=== PATIENT | male | born 1950 | race Caucasian/White ===

== ENCOUNTER 2023-02-10 08:40 | Outpatient (OUT) | payer MEDICARE, SELFPAY | END 2023-02-10 08:41 | disposition home or self-care (01) | LOC: LAB 08:44 | DX: R97.20 Elevated prostate specific antigen [PSA] (principal) | CPT/HCPCS: 36415; 84153 ==

== ENCOUNTER 2024-02-20 08:42 | Outpatient (OUT) | payer MEDICARE, SELFPAY ==
[2024-02-20 11:26] LABS: Prostate Specific Antigen Dx 2.43 ng/mL (<=4.00)
== END 2024-02-20 08:43 | disposition home or self-care (01) ==
LOC: LAB 08:44
PROVIDERS: Visit Provider Physician Assistant
DX: R97.20 Elevated prostate specific antigen [PSA] (principal); N40.1 Benign prostatic hyperplasia with lower urinary tract symptoms
CPT/HCPCS: 36415; 84153

== ENCOUNTER 2025-02-21 07:37 | Outpatient (OUT) | payer MEDICARE, SELFPAY ==
--- OUTSIDE RECORDS SUMMARY | 2025-01-04 09:20 | XMS_ITS ---
Author Organization OHIP Care Team Providers Care Director Of Rotc Name Role Phone AGUSTÍN VILA Attending Unavaila ble BRUCE, SARY Referring Unavailable BRUCE, SARY Primary Care Unavailable AGUSTÍN VILA S Referring Unavaila ble BRUCE, SARY Primary Care Unavailable MAREK ROUSSEAU Referring Unavailable BRUCE, SARY Primary Care Unavailable AGUSTÍN VILA Attending Unavaila ble BRUCE, SARY Primary Care Unavailable BRUCE, SARY Referring Unavailable AGUSTÍN VILA Referring Unavaila ble BRUCE, SARY Primary Care Unavailable AGUSTÍN VILA S Admitting Unavaila ble ASSENMACHER, AGUSTÍN S Attending Unavaila ble ASSENMACHER, AGUSTÍN S Referring Unavaila ble BRUCE, SARY Primary Care Unavailable BRUCE, SARY Primary Care Unavailable ROCÍO HAYES Attending Unavailable BRUCE, SARY Primary Care Unavailable ABIGAIL, ROCÍO Attending Unavailable ASSENMACHER, AGUSTÍN S Attending Unavaila ble BRUCE, SARY Referring Unavailable BRUCE, SARY Primary Care Unavailable ASSENMACHER, AGUSTÍN S Attending Unavaila ble BRUCE, SARY Referring Unavailable BRUCE, SARY Primary Care Unavailable ASSENMACHER, AGUSTÍN S Attending Unavaila ble BRUCE, SARY Referring Unavailable BRUCE, SARY Primary Care Unavailable Trena Coffman R Attending Unavailable Trena Coffman R Admitting Unavailable Bruce, Sary A Primary Care Unavailable Bruce DRY WALL PLASTERER-C, Sary A Primary Care Unavailable Assenmacher, Agustín S Admitting Unavaila ble Assenmacher, Agustín S Attending Unavaila ble Bruce DRY WALL PLASTERER-C, Sary A Primary Care Unavailable Bruce DRY WALL PLASTERER-C, Sary A Attending Unavailable Bruce DRY WALL PLASTERER-C, Sary A Primary Care Unavailable Bruce DRY WALL PLASTERER-C, Sary A Attending Unavailable Bruce DRY WALL PLASTERER-C, Sary A Primary Care Unavailable Bruce DRY WALL PLASTERER-C, Sary A Admitting Unavailable Bruce DRY WALL PLASTERER-C, Sary A Attending Unavailable HUMPHREY RAMEY Attending Unavailable Purpose PROBLEMS DATE TYPE CONDITION / CODE ATTENDING STATUS [facility] 08/24/2024 Unknown Post-op / FREETEXT(AOF) AGUSTÍN LAU [facility] 07/05/2024 Unknown Incomplete rotat or cuff tear or rupture of left shoulder, not specified as traumatic / M75.112(ICD-10) AGUSTÍN VILA Active [facility] 08/09/2024 Unknown Nontraumatic inc omplete tear of left rotator cuff [M75.112] / UNK(Unknown) AGUSTÍN VILA [facility] 07/02/2024 Unknown Follow-up / FREETEXT(AOF) AGUSTÍN VILA [facility] 06/04/2024 Unknown Pain in left abdifatah ulder / M25.512(ICD-10) AGUSTÍN VILA [facility] 06/04/2024 Unknown Other chronic pa in / G89.29(ICD-10) AGUSTÍN VILA Active [facility] 06/04/2024 Unknown Pain / FREETEXT(AOF) AGUSTÍN LA [facility] 02/23/2024 Unknown Other specified soft tissue disorders / M79.89(ICD-10) Trena Coffman [facility] 02/23/2024 Unknown Other acute postprocedural pain / G89.18(ICD-10) Trena Coffman [facility] 02/23/2024 Unknown Ganglion, right wrist / M67.431(ICD-10) Trena Coffman [facility] 02/23/2024 Unknown Ganglion, right hand / M67.441(ICD-10) Trena Coffman [facility] 02/23/2024 Unknown Pain in unspecif ied limb / M79.609(ICD-10) Trena Coffman [facility] PROCEDURES No Procedure Records Found VITAL SIGNS No Vital Signs Records Found RESULTS OUTSIDE RECORDS Observed: 01/04/2025 8:49 AM Status: F Source: [facility] [id number]#1.00OTGTIFF CODING SUMMARY Observed: 10/06/2024 9:16 AM Status: F Source: [facility] [employer] 64 HvynhkdjNFx0zCl+PGhlYWQ+FK7OFUKnU50eaENlbO4lG5GLTFqILuiiSUXDJPfOYfHjolUmXG0zsHGr ZXJu [file] [id number]+ CMP STANDARD Collected: 5 7:24 AM Status: F Source: [facility] TYPE CODE TESTS RESULT OUT OF RANGE REFERENCE UNITS LAB 8707592(LOINC) A/G Ratio 2.6 1.4-2.6 LAB 7143829(LOINC) Anion Gap 10.1 5.0-19.0 mmol/L LAB 1403237(LOINC) BUN/Creat Ratio 17.2 High 4.6-16.2 LAB 8896503(LOINC) Globulin 1.9 1.5-4.3 gm/dL LAB 4669228(LOINC) Osmolality 274 Unknown mOsm/L LAB 6476181(LOINC) Albumin Level 5.1 High 3.5-5.0 gm/ dL LAB 6772180([facility]) Alk Phos 48 32-91 IU/L LAB 0262708([facility]) ALT/SGPT 23.0 17.0-63.0 IU/L LAB 9133043([facility]) AST/SGOT 22 15-41 IU/L LAB 9519818([facility]) Bili Total 1.5 High 0.3-1.2 mg/dL LAB 4484437([facility]) BUN 16 8-26 mg/dL LAB 3794193([facility]) Calcium Level 9.3 8.9-10.3 mg /dL LAB 9732076([facility]) CO2 24 21-32 mmol/L LAB 8933874([facility]) Chloride Level 106 101-111 mm ol/L LAB 4347553([facility]) Creatinine Level 0.93 0.90-1.30 mg/dL LAB 1334646([facility]) Glucose Level 105.0 74.0-118.0 mg/dL LAB 9989910([facility]) Potassium Level 4.1 3.6-5.1 mmol/L LAB 0308367([facility]) Protein Total 7.0 6.5-8.1 gm/ dL LAB 4160945([facility]) Sodium Level 136.0 136.0-144.0 mmol/L LAB 7014019([facility]) eGFR AA >60 Unknown mL/min/1 .73m2 LAB 9765881([facility]) eGFR Non AA >60 Unknown mL/mi n/1 .73m2 Performed By: #### [id number] 5, [id number] #### [facility] (DEFAULT) [address] [place] [address] LIPID PANEL STANDARD Collected: 10/02/2024 7:24 AM S tatus: F Source: [facility] TYPE CODE TESTS RESULT OUT OF RANGE REFERENCE UNITS LAB 0182108([facility]) HDL 51 40-71 mg/dL LAB 8525265([facility]) LDL 140 High 1-100 mg/dL LAB 7145340([facility]) Trig 59.0 0.0-150.0 mg/dL LAB 8272153([facility]) Cholesterol 202.0 High 66.0-200.0 mg /dL LAB 73774422([facility]) VLDL. 12 5-40 mg/dL LAB 3223889([facility]) Chol/HDL Ratio 3.9 0.0-4.5 Performed By: #### [id number] 5, [id number] #### [facility] ([facility]) [address] [place] [address] CODING SUMMARY Observed: 09/06/2024 7:23 AM Status: F Source: [facility] [employer] 64 UguciqpnGTq8cBt+PGhlYWQ+SD4IZCGuN55ejAWmsY6cB6MBHOuBRtjcJKNBZWpKCoUznxGwIA7ywJYf ZXJu [file] [id number]+HJUjQu32Z7Jjpl09Y6e2sNh+ CODING SUMMARY Observed: 09/06/2024 7:20 AM Status: F Source: [facility] [employer] 64 WocqrnbqCIc6xMz+PGhlYWQ+WP2TFBUvD99mrLQjhT2cI1YOHOhUEktlTUNFUSpFFdDiarQeLN2xxNLm ZXJu [file] [id number]+GLWyYx74H7Mlij37T5y5lBc+ PROVIDER ORDERS Observed: 09/02/2024 8:19 AM Status: P [address]: [id number]#1.00OTGTIFF MEDICATION MANAGEMENT Observed: 09/02/19 8:19 AM Status: F Source: [id number]#1.00OTGTIFF PHYSICAL THERAPY NOTE Observed: 09/02/19 8:19 AM Status: F Source: [id number]#1.00OTGTIFF OUTSIDE RECORDS Observed: 08/29/2024 10:19 AM Status: F Source: [facility] [id number]#1.00OTGTIFF PROVIDER ORDERS Observed: 08/26/2024 11:49 AM Status: F Source: [facility] [id number]#1.00OTGTIFF OUTSIDE RECORDS Observed: 08/09/2024 2:08 PM Status: F Source: [facility] [id number]#1.00OTGTIFF OUTSIDE RECORDS Observed: 07/02/2024 10:05 AM Status: F Source: [facility] [id number]#1.00OTGTIFF MR SHOULDER LT WO CONT Observed: 7:17 AM Status: COMPLETED Source: [facility] MR SHOULDER LT WO CONT MR LEFT SHOULDER CLINICAL INFORMATION: Shoulder pain. COMPARISON: Radiographs 06/04/2024 PROCEDURE: Multiplanar multisequence images of the shoulder performed. No intravenous contrast. FINDINGS: ROTATOR CUFF AND ASSOCIATED STRUCTURES Long head biceps tendon: Proximal tendinosis, split tearing without complete tear. Medially perched on the bicipital groove. There is moderate volume complex tendon sheath fluid. Rotator cuff and muscles: Mild supraspinatus, infraspinatus tendinosis. Articular sided clefting and irregularity along the supraspinatus tendon distally near the footprint begins at the anterior leading edge, appears high-grade roughly centimeter percent in thickness, no full-thickness tear. Tendon retraction roughly 9 mm. Tear width roughly 7 mm. Additional subtle intrasubstance injury infraspinatus tendon without distinct or measurable full-thickness tear. Mild to moderate subscapularis tendinosis, slight intrasubstance and undersurface fraying/injury without measurable discrete tear. There is diffuse mild fat infiltration the musculature without significant loss of muscle bulk. Bursa: Small to moderate volume subacromial subdeltoid bursal fluid. OSSEOUS STRUCTURES Acromioclavicular joint: Type 1 No os acromiale. Advanced AC joint arthritis. Bones: No Hill-Sachs, reverse Hill-Sachs, or bony Bankart lesions. No fracture. No osteonecrosis. No suspicious osseous lesion. GLENOHUMERAL JOINT Joint: Normal alignment. Small to moderate volume complex joint fluid. Cartilage: Regions of high-grade near full-thickness and full-thickness chondral loss. Labrum: Superior labral degeneration, no paralabral cyst. Other support structures: No capsular or ligamentous abnormality. OTHER No enlarged lymph nodes. IMPRESSION: 1. Supraspinatus, infraspinatus, subscapularis tendinosis with partial injury as described, no full-thickness tear. Most high-grade tear distal supraspinatus bursal sided. 2. Other chronic findings as described including long head biceps tendinosis, tenosynovitis and split tearing. Subacromial subdeltoid bursitis. Degenerative changes. Finalized by Milan Ledbetter MD on 06/28/2024 3:02 PM OUTSIDE RECORDS Observed: 05/18/2024 8:14 AM Status: F Source: [facility] [id number]#1.00OTGTIFF OUTSIDE RECORDS Observed: 04/06/2024 2:52 PM Status: F Source: [facility] [id number]#1.00OTGTIFF OUTSIDE RECORDS Observed: 03/12/2024 8:55 AM Status: F Source: [facility] [id number]#1.00OTGTIFF OUTSIDE RECORDS Observed: 03/09/2024 2:22 PM Status: F Source: [facility] [id number]#1.00OTGTIFF UROLOGY OFFICE/CLINIC NOTE Observed: 11:31 AM Status: F Source: [facility] Urology Office/Clinic Note Chief Complaint 1 year with PSA HPI Staff 74 year old male patient presents today for a 1 year follow up with PSA. Previous Dx: elevated PSA, BPH with urinary obstruction. Current PSA 2.43 done 02/20/24. Previous PSA 3.00 done 02/10/23. Taking Flomax 0.4 mg bid. S/p TURP 02/25/13, cysto/UD 08/31/13, transurethral incision of bladder neck 09/02/13, cysto 05/23/15. Needs flomax refilled. Dysuria: denies Incomplete bladder emptying: denies Hematuria: denies visible blood Frequency: denies, goes once every 3-4 hours Urgency: denies Nocturia: once a night Stream: denies hesitancy, steady stream Leaking: denies Post void dripping: denies Wearing pads/ Depends: denies Urge incontinence: denies Stress incontinence: denies Incontinence without Sensory Awareness: denies Abdominal pain: denies Flank pain: _denies Sexual complaints: _ Review of Systems PHQ Score Initial Depression Screen Score: 0 SCORE no fever, chills, malaise, myalgia. no rash/lesions. no chest pain, palpitations, or SOB. no abdominal pain, nausea, vomiting. no unilateral calf swelling, redness, pain Physical Exam Vitals & Measurements HR: 82(Peripheral) RR: 16 BP: 122/80 HT: 68 in HT: 172 cm WT: 80 kg WT: 176 lb BMI: 27.04 General: nontoxic, NAD Mouth: moist mucosa Lungs: normal respiratory effort Cardio: regular rate, good distal perfusion Abdomen: nondistended, no suprapubic distention or tenderness, no CVA tenderness Neurologic: Grossly normal Skin: No rashes or suspicious lesions Assessment/Plan Spermatocelectomy - 01/11/10 Urodynamics - 02/07/13 1. BPH with urinary obstruction (N40.1: Benign prostatic hyperplasia with lower urinary tract symptoms) sp TURP February 2013 TUIBNC Aug 2013 Pt is taking tamsulosin BID and is highly satisfiedwith overall symptom control. Pt is experiencing noside effects. IPSS 1 QOL 0 UA completed in office today shows no microhematuria or signs of infection. We discussed current dose and optional changes: decreasing tamsulosin to QD adding an additional agent such as finasteride/dutasteride I discussed with the patient the different surgical treatment options for bladder outlet obstruction including TURP, Rezum, and Urolift. The patient prefers to continue the BPH medications at this time. Pt prefers to continue current regimen with no changes at this time. Refills provided to [employer]. Ordered: Body Mass Index (BMI) documented 3008F Current tobacco non-user 1036F Depression Screening Negative 3352F Influenza immunization status assessed 1030F Medication list documented in medical record 1159F Most recent diastolic blood pressure 80-89 mm Hg 3079F Patient screen for fall risk: no falls in last year or 1 fall with no injury in last year 1101F Review of all meds by a prescribing practitioner or clinical pharmacist documented in EHR 1160F Systolic BP <130 mm Hg (Most Recent) 3074F Urnls Dip Stick Auto w/o Microscopy POC 91519 2. Prostate cancer screening, (Z12.5: Encounter for screening for malignant neoplasm of prostate)Prostate cancer screening PSA 11/13/2017 - 1.71 11/16/2018 - 2.09 01/31/2020 - 2.99 08/16/2020 - 2.41 01/18/2021 - 2.26 02/10/2023 - 3.00 02/20/24 - 2.43 PSA is down about half a point from last year. But overall pretty stable over the past 4-5 yrs running in the 2-3 range. Continue annual monitoring. Order provided. Ordered: PSA Screen, Total Orders: tamsulosin, 0.4 mg = 1 cap(s), Oral, BID, DO NOT FILL UNTIL PT REQUESTS, # 180 cap(s), Refills(s) 3, Pharmacy: [facility], 172, cm, 03/01/24 11:17:00 EDT, Height/Length Dosing, 80, kg, 03/01/24 11:17:00 EDT, Weight Dosing Follow-up With When Contact Information HUMPHREY RAMEY PA-C, URL Within 1 year Additional Instructions: Patient Education Benign Prostatic Hyperplasia Problem List/Past Medical History Ongoing Arthritis BPH with urinary obstruction Elevated PSA Hepatitis Inflammatory disease of liver Osteoarthritis of left knee joint Osteoarthritis of right knee joint Prostate cancer screening Prostatitis Spermatocele Urethral stricture Historical No qualifying data Procedure/Surgical History Wrist (02/23/2024), Cystoscopy (05/23/2015), Transurethral incision of bladder neck (09/02/2013), Cystoscopy (08/31/2013), TURP - Transurethral resection of prostate (02/25/2013), Cystoscopy (02/16/2013), Urodynamics (02/07/2013), Spermatocelectomy (01/11/2010), Spermatocelectomy (09/07/2009), Colonoscopy, History of hernia repair, Procedure on knee, Ts - Tonsillectomy. Medications apple cider vinegar aspirin 81 mg oral tablet, Oral, Daily tamsulosin 0.4 mg Cap, 0.4 mg= 1 cap(s), Oral, BID, 3 refills Vitamin B-12 Vitamin D3 Allergies ibuprofen (Unknown) Social History Alcohol - Denies Alcohol Use, 02/10/2020 Tobacco - Denies Tobacco Use, 02/10/2020 Never (less than 100 in lifetime) Tobacco Use:. Never Smokeless Tobacco Use:., 03/01/2024 Family History Alzheimer's disease: Mother. Cancer: Father. Diabetes mellitus type 1: Father. Immunizations Vaccine Date Status Comments influenza virus vaccine, inactivated 06/02/2023 Recorded influenza virus vaccine, inactivated 07/23/2022 Recorded SARS-CoV-2 (COVID-19) mRNAMUL.ORD![id number] 06/14/2022 Recorded SARS-CoV-2 (COVID-19) mRNA-1273 vaccine 11/24/2021 Recorded SARS-CoV-2 mRNA (tozinameran 5y-11y) vac 09/2021 Recorded SARS-CoV-2 (COVID-19) mRNA-1273 vaccine 06/16/2021 Recorded influenza virus vaccine, inactivated 06/13/2021 Recorded SARS-CoV-2 mRNA (tozinameran 5y-11y) vac 05/2021 Recorded SARS-CoV-2 mRNA (tozinameran 5y-11y) vac 11/2020 Recorded SARS-CoV-2 (COVID-19) mRNA-1273 vaccine 11/09/2020 Recorded 2023-02-13: 65 SARS-CoV-2 mRNA (tozinameran 5y-11y) vac 10/2020 Recorded SARS-CoV-2 (COVID-19) mRNA-1273 vaccine 10/12/2020 Recorded influenza virus vaccine, inactivated 05/26/2020 Recorded pneumococcal 13-valent vaccine 07/26/2019 Recorded influenza virus vaccine, inactivated 06/01/2019 Recorded influenza virus vaccine, inactivated 06/15/2018 Recorded influenza virus vaccine, inactivated 06/18/2017 Recorded influenza, unspecified formulation 07/30/2016 Recorded influenza virus vaccine, inactivated 06/26/2015 Recorded influenza virus vaccine, inactivated 06/07/2014 Recorded influenza virus vaccine, inactivated 06/25/2013 Recorded influenza, unspecified formulation 08/22/2011 Recorded influenza, unspecified formulation 08/02/2010 Recorded influenza, unspecified formulation 05/18/2009 Recorded Lab Results Ambulatory Point of Care Results Bilirubin Urine Dipstick: Negative (03/01/24 11:10:00) Blood Urine Dipstick: Negative (03/01/24 11:10:00) Glucose Urine Dipstick: Negative (03/01/24 11:10:00) Ketones Urine Dipstick: Negative (03/01/24 11:10:00) Leukocytes Urine Dipstick: Negative (03/01/24 11:10:00) Nitrite Urine Dipstick: Negative (03/01/24 11:10:00) Protein Urine Dipstick: Negative (03/01/24 11:10:00) Specific [place] Urine Dipstick: 1.015 (03/01/24 11:10:00) Urine Appearance Urine Dipstick: Clear (03/01/24 11:10:00) Urine Color Urine Dipstick: Yellow (03/01/24 11:10:00) Urobilinogen Urine Dipstick: Normal 0.2-1 EU/dl (03/01/24 11:10:00) pH Urine Dipstick: 6.5 (03/01/24 11:10:00) Result Comment: Electronical ly Signed By: HUMPHREY RAMEY PA-C.br\Date and Time Signed: 03/01/24 11:32 EDT PATIENT EDUCATION Observed: 03/01/2024 11:31 AM Status: F Source: [facility] Patient Education Urology Benign Prostatic Hyperplasia Benign prostatic hyperplasia (BPH) is an enlarged prostate gland that is caused by the normal aging process. The prostate may get bigger as a man gets older. The condition is not caused by cancer. The prostate is a walnut-sized gland that is involved in the production of semen. It is located in front of the rectum and below the bladder. The bladder stores urine. The urethra carries stored urine out of the body. An enlarged prostate can press on the urethra. This can make it harder to pass urine. The buildup of urine in the bladder can cause infection. Back pressure and infection may progress to bladder damage and kidney (renal) failure. What are the causes? This condition is part of the normal aging process. However, not all men develop problems from this condition. If the prostate enlarges away from the urethra, urine flow will not be blocked. If it enlarges toward the urethra and compresses it, there will be problems passing urine. What increases the risk? This condition is more likely to develop in men older than 50 years. What are the signs or symptoms? Symptoms of this condition include: ? Getting up often during the night to urinate. ? Needing to urinate frequently during the day. ? Difficulty starting urine flow. ? Decrease in size and strength of your urine stream. ? Leaking (dribbling) after urinating. ? Inability to pass urine. This needs immediate treatment. ? Inability to completely empty your bladder. ? Pain when you pass urine. This is more common if there is also an infection. ? Urinary tract infection (UTI). How is this diagnosed? This condition is diagnosed based on your medical history, a physical exam, and your symptoms. Tests will also be done, such as: ? A post-void bladder scan. This measures any amount of urine that may remain in your bladder after you finish urinating. ? A digital rectal exam. In a rectal exam, your health care provider checks your prostate by putting a lubricated, gloved finger into your rectum to feel the back of your prostate gland. This exam detects the size of your gland and any abnormal lumps or growths. ? An exam of your urine (urinalysis). ? A prostate specific antigen (PSA) screening. This is a blood test used to screen for prostate cancer. ? An ultrasound. This test uses sound waves to electronically produce a picture of your prostate gland. Your health care provider may refer you to a specialist in kidney and prostate diseases (urologist). How is this treated? Once symptoms begin, your health care provider will monitor your condition (active surveillance or watchful waiting). Treatment for this condition will depend on the severity of your condition. Treatment may include: ? Observation and yearly exams. This may be the only treatment needed if your condition and symptoms are mild. ? Medicines to relieve your symptoms, including: ? Medicines to shrink the prostate. ? Medicines to relax the muscle of the prostate. ? Surgery in severe cases. Surgery may include: ? Prostatectomy. In this procedure, the prostate tissue is removed completely through an open incision or with a laparoscope or robotics. ? Transurethral resection of the prostate (TURP). In this procedure, a tool is inserted through the opening at the tip of the penis (urethra). It is used to cut away tissue of the inner core of the prostate. The pieces are removed through the same opening of the penis. This removes the blockage. ? Transurethral incision (TUIP). In this procedure, small cuts are made in the prostate. This lessens the prostate's pressure on the urethra. ? Transurethral microwave thermotherapy (TUMT). This procedure uses microwaves to create heat. The heat destroys and removes a small amount of prostate tissue. ? Transurethral needle ablation (TUNA). This procedure uses radio frequencies to destroy and remove a small amount of prostate tissue. ? Interstitial laser coagulation (ILC). This procedure uses a laser to destroy and remove a small amount of prostate tissue. ? Transurethral electrovaporization (TUVP). This procedure uses electrodes to destroy and remove a small amount of prostate tissue. ? Prostatic urethral lift. This procedure inserts an implant to push the lobes of the prostate away from the urethra. Follow these instructions at home: ? Take ctpe-mzb-ksvockl and prescription medicines only as told by your health care provider. ? Monitor your symptoms for any changes. Contact your health care provider with any changes. ? Avoid drinking large amounts of liquid before going to bed or out in public. ? Avoid or reduce how much caffeine or alcohol you drink. ? Give yourself time when you urinate. ? Keep all follow-up visits. This is important. Contact a health care provider if: ? You have unexplained back pain. ? Your symptoms do not get better with treatment. ? You develop side effects from the medicine you are taking. ? Your urine becomes very dark or has a bad smell. ? Your lower abdomen becomes distended and you have trouble passing urine. Get help right away if: ? You have a fever or chills. ? You suddenly cannot urinate. ? You feel light-headed or very dizzy, or you faint. ? There are large amounts of blood or clots in your urine. ? Your urinary problems become hard to manage. ? You develop moderate to severe low back or flank pain. The flank is the side of your body between the ribs and the hip. These symptoms may be an emergency. Get help right away. Call 911. ? Do not wait to see if the symptoms will go away. ? Do not drive yourself to the hospital. Summary ? Benign prostatic hyperplasia (BPH) is an enlarged prostate that is caused by the normal aging process. It is not caused by cancer. ? An enlarged prostate can press on the urethra. This can make it hard to pass urine. ? This condition is more likely to develop in men older than 50 years. ? Get help right away if you suddenly cannot urinate. This information is not intended to replace advice given to you by your health care provider. Make sure you discuss any questions you have with your health care provider. Document Revised: 02/20/2022 Document Reviewed: 02/20/2022 [employer] Patient Education ? 2022 [employer]. AMBULATORY VISIT SUMMARY Observed: 03/01 11:26 AM Status: F Source: [facility] Ambulatory Visit Summary VISHAL VIRA Weiner :1950 Visit Date:03/01/2024 Ambulatory Visit Instructions Your Diagnosis BPH with urinary obstruction Prostate cancer screening, Prostate cancer screening Your Care Team Attending Physician - HUMPHREY RAMEY PA-C Primary Care Physician - SARY RODRIGUEZ CNP This Is Your Medications List Non-Formulary Medication (apple cider vinegar) aspirin (aspirin 81 mg oral tablet) cholecalciferol (Vitamin D3) cyanocobalamin (Vitamin B-12) tamsulosin (tamsulosin 0.4 mg Cap) Procedures Performed Wrist (02/23/2024), Cystoscopy (05/23/2015), Transurethral incision of bladder neck (09/02/2013), Cystoscopy (08/31/2013), TURP - Transurethral resection of prostate (02/25/2013), Cystoscopy (02/16/2013), Urodynamics (02/07/2013), Spermatocelectomy (01/11/2010), Spermatocelectomy (09/07/2009), Colonoscopy, History of hernia repair, Procedure on knee, Ts - Tonsillectomy. Discharge Vitals Heart Rate (Peripheral) 82 Respiratory Rate 16 Blood Pressure 122/80 Height 172 cm Height 68 in Weight 80 kg Weight 176 lb BMI 27.04 Medications What How Much When Instructions Unchanged aspirin (aspirin 81 mg oral tablet) By Mouth Every day Unchanged cholecalciferol (Vitamin D3) Unchanged cyanocobalamin (Vitamin B-12) Unchanged Non-Formulary Medication (apple cider vinegar) Unchanged tamsulosin (tamsulosin 0.4 mg Cap) 1 Capsules By Mouth 2 times a day Allergies ibuprofen (Unknown) Problems Ongoing - Any problem that you are currently receiving treatment for. Arthritis BPH with urinary obstruction Elevated PSA Hepatitis Inflammatory disease of liver Osteoarthritis of left knee joint Osteoarthritis of right knee joint Prostate cancer screening Prostatitis Spermatocele Urethral stricture Patient Survey You may receive a survey via text or e-mail asking about your office visit. Please share your experience with us by completing your survey. We appreciate your feedback and thank you for choosing us for your care. REMINDERS Observed: 03/01/2024 11:26 AM Status: C Source: [facility] Reminders From: Nazanin Vargas To: EU - Administrative; Sent: 03/01/2024 11:26:37 EDT Show up: 03/01/2024 11:35:00 EDT Subject: 1 yr f/u Due Date/Time: 03/01/2025 11:26:00 EDT Reminder/Recall Pt needs 1 yr f/u w/JOE due by 03/01/2025 Pt has been scheduled for 02/28/25. OUTSIDE RECORDS Observed: 02/24/2024 2:12 PM Status: F Source: [facility] [id number]#1.00OTGTIFF OUTSIDE RECORDS Observed: 02/23/2024 9:56 AM Status: F Source: [facility] [id number]#1.00OTGTIFF L Observed: 02/23/2024 12:00 AM Status: F Source: [facility] Specimen: [id number] Received: 02/23/24 Status: SOUT Re Num: [id number] Spec Type: Surgical Subm Dr: Trena Coffman MD Tissues: A Soft Tissue/Surgical Margin-Other than Tumor,Mass,Lip or Qi (RT WRIST) B Soft Tissue/Surgical Margin-Other than Tumor,Mass,Lip or Qi (VPNS RT LONG F Procedures: HE/2, Gross/Micro L4/2 Age/ Patient Sex Location Account Attending Physician Vira Rodgers 74/M DC [id number] Trena Coffman MD SPEC NUM: [id number] RECD: 02/23/24 STATUS: SOUT REQ NUM: [id number] AP: 02/23/24- SUBM DR: Trena Coffman MD ENTERED: 02/23/[address] [facility] [address]: SPEC TYPE: Surgical DEPT: S ORDERED: HE/2, Gross/Micro L4/2 ORDERED: HE/2, Gross/Micro L4/2 Pathological Diagnosis A. Sac of right wrist, excision: - Benign synovial tissue with hyperplastic changes B. 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 A. Further labeled sac of right wrist is a 2.8 x 1.1 x 0.3 cm rubbery prather-pink saccular membranous tissue fragment. Sectioning demonstrates a smooth inner lining with no suspicious lesions identified. Engineering Specialist Technician sections are submitted in A1. B. Further labeled VNS right long finger is a rubbery and lobulated prather-pink membranous tissue nodule measuring 1.6 x 1.5 x 0.9 cm. Cut sections reveal rubbery prather- yellow cut surfaces. Engineering Specialist Technician sections are submitted in B1. ----- ------- Specimen: [id number] Received: 02/23/24 Status: SOUT Req Num: [id number] Spec Type: Surgical Subm Dr: Trena Coffman MD Tissues: A Soft Tissue/Surgical Margin-Other than Tumor,Mass,Lip or Qi (RT WRIST) B Soft Tissue/Surgical Margin-Other than Tumor,Mass,Lip or Qi (VPNS RT LONG F Procedures: IBENVENIDO Gross/Micro L4/2 ----- ------- Patient: Vira Rodgesr [id number] (Continued) ----- ------- Specimen: [id number] Received: 02/23/24 (Continued) Signed (signature on file) Dany Adams MD 02/24/24 1236 ----- ------- Specimen: [id number] Received: 02/23/24 Status: TOD Paul Num: [id number] Spec Type: Surgical Subm Dr: Trena Coffman MD Tissues: A Soft Tissue/Surgical Margin-Other than Tumor,Mass,Lip or Qi (RT WRIST) B Soft Tissue/Surgical Margin-Other than Tumor,Mass,Lip or Qi (VPNS RT LONG F Procedures: Anshu Gross/Micro L4/2 ----- ------- Patient: Vira Rodgers [id number] (Continued) ----- ------- Specimen: [id number] Received: 02/23/24 (Continued) CPT Codes [id number] ----- ------- ----- ------- Specimen: [id number] Received: 02/23/24 Status: TOD Paul Num: [id number] Spec Type: Surgical Subm Dr: Trena Coffman MD Tissues: A Soft Tissue/Surgical Margin-Other than Tumor,Mass,Lip or Qi (RT WRIST) B Soft Tissue/Surgical Margin-Other than Tumor,Mass,Lip or Qi (VPNS RT LONG F Procedures: HE/2, Gross/Micro L4/2 ----- ------- Patient: VishalVira [id number] (Continued) ----- ------- Signed (signature on file) Dany Adams MD 02/24/24 1236 OUTSIDE RECORDS Observed: 02/11/2024 8:11 AM Status: F Source: [facility] [id number]#1.00OTGTIFF ALLERGIES DATE TYPE / CODE NAME / CODE REACTION SEVERITY SOURCE 02/23/2024 Drug Allergy/5111587 02(SNOMED CT) No Known Allergies/E123595576 (RXNORM) Unknown [facility] Drug/214267751( SNOMED CT) No known allergies [facility] Drug Class/501453581 (SNOMED CT) NO KNOWN ALLERGIES [facility] /937569619(SN OMED CT) ibuprofen [id number] [facility] ENCOUNTERS ADMIT/DISCHARGE ACCOUNT NUMBER ADMITTING ENCOUNTER CLASS LOCATION SOURCE 01/04/2025/01/05/20 [id number] Ambulatory Buildin 9 [facility] 10/05/2024/10/05/19 [id number] Ambulatory Buildin 9 [facility] 10/02/2024 [id number] Bruce KHOURY, Sary Murphy [facility] 09/15/2024 [id number] [facility] 09/02/2024 [id number] Agustín Vila [facility] 08/24/2024/08/24/19 25 [id number] Ambulatory Buildin 9 [facility] 08/09/2024/08/09/20 24 [id number] Inpatient Encounter Building:PBP _PERIOP [facility] 08/09/2024/08/09/20 24 [id number] Inpatient Encounter Building:PBP _PERIOP [facility] 08/09/2024/08/09/20 24 [id number] AGUSTÍN VILA Inpatient Encounter Building:PBP _PERIOPRoom: POOLBed: SP [facility] 07/28/2024/08/01/20 24 [id number] Ambulatory Building:PBP _PAT [facility] 07/02/2024/07/02/20 24 [id number] Ambulatory Buildin 7 [facility] 06/26/2024/06/26/20 24 [id number] Ambulatory Building:PBP _RADMR [facility] 06/04/2024/06/04/20 24 [id number] Ambulatory Buildin 7 [facility] 06/04/2024/06/04/20 24 [id number] Ambulatory Buildin 7 [facility] 03/01/2024/03/01/20 24 [id number] [place] Exam 1 [facility] 02/23/2024/02/23/20 24 [id number] [facility] 06/02/2023/06/02/20 23 [id number] [facility]ulatory [facility]: Bruce Room [address] [place] [address] FUNCTIONAL STATUS No Functional Status Records Found EQUIPMENT No Equipment Records Found PAYERS ENCOUNTER GUARANTOR PAYER SUBSCRIBER SOURCE 01/04/2025 VIRA CORREIA: [place], [place] [address]Eis: (HP) Primary Insurance:AETNA MEDICARE PLAN (PPO)Policy Number: [id number] ve Date:2023-08-18 VIRA CORREIA: [id number] [place] [address] [facility] 10/05/2024 VIRA CORREIA: [place] [address]Too: (HP) Primary Insurance:AETNA MEDICARE PLAN (PPO)Policy Number: [id number] ve Date:2023-08-18 VIRA CORREIA: [id number] [place] [address] [facility] 10/02/2024 VIRA CORREIA: [place] [address]Vku: (HP) Primary Insurance:AETNAPoli cy Number: [id number] ve Date:3883-56-17Copc Name:Medicare [address] [id number] [place] [address]ZV: VIRA CORREIA: [id number] [place], [place] [address]Koq: (HP) () [facility] 09/15/2024 VIRA CORREIA: [place], [place] [address]Vsm: (HP) Primary Insurance:AETNAPoli cy Number: [id number] ve Date:6475-48-72Bimb Name:Medicare [place] [id number] [place] [address]KM: VIRA CORREIA: [id number] [address] [place], [place] [address]Mub: (HP) (WP) [facility] 09/02/2024 VIRA CORREIA: [place], [place] [address]Znv: (HP) Primary Insurance:AETNAPoli cy Number: [id number] ve Date:6465-19-65Avnc Name:Medicare [place] [address] [address]FI: VIRA CORREIA: [id number] [place], [place] [address]Scv: (HP) (WP) [facility] 08/24/2024 VIRA CORREIA: [place], [place] [address]Qsn: (HP) Primary Insurance:AETNA MEDICARE PLAN (PPO)Policy Number: [id number] ve Date:2023-08-18 VIRA CORREIA: [id number] [place] [address] [facility] 08/09/2024 VIRA CORREIA: [place] [address]Nzm: (HP) Primary Insurance:AETNA MEDICARE PLAN (PPO)Policy Number: [id number] ve Date:2023-08-18 VIRA CORREIA: [id number] [place] [address] [facility] 08/09/2024 VIRA CORREIA: [place], [place] [address]Rop: (HP) Primary Insurance:AETNA MEDICARE PLAN (PPO)Policy Number: [id number] ve Date:2023-08-18 VIRA CORREIA: [id number] [place] [address] [facility] 08/09/2024 VIRA CORREIA: [place], [place] [address]Ans: (HP) Primary Insurance:AETNA MEDICARE PLAN (PPO)Policy Number: [id number] ve Date:2023-08-18 VIRA CORREIA: [id number] [place] [address] [facility] 07/28/2024 VIRA CORREIA: [place] [address]Mjy: (HP) Primary Insurance:AETNA MEDICARE PLAN (PPO)Policy Number: [id number] ve Date:2023-08-18 VIRA CORREIA: [id number] [place] [address] [facility] 07/02/2024 VIRA CORREIA: [place], [place] [address]Gbs: (HP) Primary Insurance:AETNA MEDICARE PLAN (PPO)Policy Number: [id number] ve Date:2023-08-18 VIRA CORREIA: [id number] [place], [place] [address]Sxx: (HP) [facility] 06/26/2024 VIRA CORREIA: [place], [place] [address]Hch: (HP) Primary Insurance:AETNA MEDICARE PLAN (PPO)Policy Number: [id number] ve Date:2023-08-18 VIRA CORREIA: [id number] [place], [place] [address]Shb: (HP) [facility] 06/04/2024 VIRA CORREIA: [place], [place] [address]Oew: (HP) Primary Insurance:AETNA MEDICARE PLAN (PPO)Policy Number: [id number] ve Date:2023-08-18 VIRA CORREIA: [id number] [place], [place] [address]Gpe: (HP) [facility] 06/04/2024 VIRA CORREIA: [place], [place] [address]Sox: (HP) Primary Insurance:AETNA MEDICARE PLAN (PPO)Policy Number: [id number] ve Date:2023-08-18 VIRA CORREIA: [id number] [place], [place] [address]Ria: (HP) [facility] 03/01/2024 VIRA CORREIA: [place] ~~(41 (HP) Primary Insurance:AETNAPoli cy Number: [id number] ve Date:4653-33-10[id number] [place] [address]IQ: VIRA DICKINSON [facility] 02/23/[address] [place] [id number]: (HP) Primary Insurance:[employer]na MCR PFFSPolicy Number: [id number] ve Date:5321-88-22BK [address] [place] [address]LP: Vira Correia: [id number] [place] [address]Gci: (HP) [facility] 02/23/2024 Secondary Insurance:Self PayPolicy Number: Effective Date:2024-02-10 [facility] VIRA CORREIA: [place], [place] [address]Wtf: (HP) Primary Insurance:AETNAPoli cy Number: [id number] Date:3219-01-60Mowo Name:Medicare [facility] VIRA RODGERSGAMAL: [id number] [place], [place] [address]Fpl: () [facility] SOCIAL HISTORY No Social History Records Found FAMILY HISTORY No Family History Records Found No Status Records Found ADVANCE DIRECTIVES No Advanced Directives Records Found INFORMATION SOURCE DATE CREATED AUTHOR AUTHOR'S ALEKS ATION 02/21/2025 [place]
== END 2025-02-21 07:38 | disposition home or self-care (01) ==
LOC: LAB 07:38
PROVIDERS: Visit Provider Physician Assistant
DX: Z12.5 Encounter for screening for malignant neoplasm of prostate (principal)
CPT/HCPCS: 36415; G0103